=== PATIENT | female | born 1990 | race Caucasian/White ===

== ENCOUNTER → 2016-11-07 15:49 | Outpatient (RCR) | payer BC ==
[2016-10-09 13:07] VITALS: BP 123/75; PULSE 83; TEMP 97.9
[2016-10-16 13:41] VITALS: BP 119/74; BP 127/88; PULSE 84; PULSE 94; TEMP 97.6; TEMP 98.2
[2016-11-05 18:45] VITALS: TEMP 98.9
[~2016-11-07] VITALS: Ht 172.7 cm; Wt 71.7 kg
[~2016-11-07 15:49] MED LIST: FERROUS SU325 MG/TAB PO; IBU600 MG PO; PERCOCET 325 MG1 TA2 PO; PRENATAL MVI
== END | disposition home or self-care (01) ==
LOC: LDRO 10-07 18:29
DX: O30.002 Twin pregnancy, unspecified number of placenta and unspecified number of amniotic sacs, second trimester (principal); Z3A.19 19 weeks gestation of pregnancy

== ENCOUNTER 2016-11-25 06:20 | Inpatient (IN) | payer BC ==
[2016-11-25] VITALS (21 sets, daily range): BP systolic 103–148; BP diastolic 60–93; PULSE 71–108; TEMP 97.6–98.2
[~2016-11-25 06:20] MED LIST changes: -FERROUS SU325 MG/TAB PO; -IBU600 MG PO; -PERCOCET 325 MG1 TA2 PO
[2016-11-25 07:00] LABS: BASO # 0.1 (0.0-0.2); BASO % 0.4 % (0.0-2.0); EOS # 0.4 (0.0-0.7); EOS % 2.9 % (0-4.0); GRAN # 9.2 (1.4-6.5); GRAN % 68.1 % (42.2-75.2); LYMPH # 2.9 (1.2-3.4); LYMPH % 21.1 % (20.0-51.0); MEAN CELL VOLUME 87 fl (80.0-100.0); MEAN CORPUSCULAR HGB CONC 34 g/dl (33.0-37.0); MONO # 0.9 (0.1-0.6); MONO % 6.9 % (1.7-9.3); PLATELET COUNT 203 K/mm3 (130-400); RED BLOOD COUNT 4.04 M/mm3 (4.10-5.30); REDCELL DISTRIBUTION WIDTH-CV 12.9 % (11.5-14.5); WHITE BLOOD COUNT 13.5 K/mm3 (4.8-10.8)
[2016-11-25 07:02] LABS: HEMOGLOBIN 11.8 g/dl (12.5-16.0); MEAN CORPUSCULAR HEMOGLOBIN 29 pg (27.0-31.0)
[2016-11-26 07:13] LABS: HEMATOCRIT 24.8 % (37.0-47.0)
[2016-11-26 07:29] VITALS: BP 125/75; PULSE 88; TEMP 98.2
[2016-11-26] MEDS ORDERED: PERCOCET 325 MG1 TA2 PO (08:47)
[2016-11-26] MEDS ORDERED: IBU600 MG PO (08:47)
[2016-11-26] MEDS ORDERED: FERROUS SU325 MG/TAB PO (08:50)
[2016-11-26 11:10] VITALS: BP 127/62; PULSE 88; TEMP 98.2
== END 2016-11-26 14:19 | disposition home or self-care (01) | DRG 765 ==
LOC: LDRO 06:20 → OB 06:33 → LDR 06:33 → OB 09:00
PROVIDERS: Obstetrics & Gynecology
PROC: 10D00Z1 Extraction of Products of Conception, Low, Open Approach (ICD-10-PCS; principal; 2016-11-25)
DX: O60.14X1 Preterm labor third trimester with preterm delivery third trimester, fetus 1 (principal); D62 Acute posthemorrhagic anemia; O99.02 Anemia complicating childbirth; O30.033 Twin pregnancy, monochorionic/diamniotic, third trimester; O60.14X2 Preterm labor third trimester with preterm delivery third trimester, fetus 2; O76 Abnormality in fetal heart rate and rhythm complicating labor and delivery; O69.0XX2 Labor and delivery complicated by prolapse of cord, fetus 2; O60.13X0 Preterm labor second trimester with preterm delivery third trimester, not applicable or unspecified; Z3A.31 31 weeks gestation of pregnancy; Z37.2 Twins, both liveborn
CPT/HCPCS: J0330; J0690; J0702; J1885; J2210; J2270; J2405; J2704; J3010; J3475; J7120

== ENCOUNTER 2018-08-06 15:33 | Emergency (ER) | payer BC ==
[~2018-08-06] VITALS: Ht 172.7 cm; Wt 63.6 kg
[~2018-08-06 15:33] MED LIST changes: +FERROUS SU325 MG/TAB PO; +IBU600 MG PO; +PERCOCET 325 MG1 TA2 PO
[2018-08-06 15:47] VITALS: TEMP 99
[2018-08-06] MEDS ORDERED: FLAGYL500 MG PO (16:06)
[2018-08-06] MEDS ORDERED: CIPRO 500MG TA500 MG PO (16:07)
[2018-08-06] MEDS ORDERED: PROBIOTIC FORMU1 CAP PO (16:07)
[2018-08-06 16:32] LABS: COLLECTION METHOD CLEAN CATCH
[2018-08-06 16:40] LABS: MUCOUS Present /lpf; PH 6 (5-8); SQUAMOUS EPITHELIAL 0-2 /hpf; URINE APPEARANCE Clear; URINE BACTERIA Rare /hpf; URINE BILIRUBIN Negative (NEGATIVE); URINE BLOOD 1+ (NEGATIVE); URINE COLOR Yellow; URINE GLUCOSE Negative (NEGATIVE); URINE KETONE 1+ (NEGATIVE); URINE LEUKOCYTE ESTERASE Trace (NEGATIVE); URINE NITRATE Negative (NEGATIVE); URINE PROTEIN(semi-quant) Negative (NEGATIVE); URINE UROBILINOGEN Negative (NEGATIVE)
[2018-08-06 16:57] LABS: BASO # 0.1 (0.0-0.2); BASO % 0.6 % (0.0-2.0); EOS # 0.3 (0.0-0.7); EOS % 3.5 % (0-4.0); GRAN # 5.4 (1.4-6.5); GRAN % 69.1 % (42.2-75.2); HEMOGLOBIN 12.9 g/dl (12.5-16.0); LYMPH # 1.3 (1.2-3.4); LYMPH % 16.5 % (20.0-51.0); MEAN CELL VOLUME 89 fl (80.0-100.0); MEAN CORPUSCULAR HEMOGLOBIN 30 pg (27.0-31.0); MEAN CORPUSCULAR HGB CONC 33 g/dl (33.0-37.0); MEAN PLATELET VOLUME 8.8 fl (7.4-10.4); MONO # 0.8 (0.1-0.6); MONO % 9.9 % (1.7-9.3); PLATELET COUNT 327 K/mm3 (130-400); RED BLOOD COUNT 4.38 M/mm3 (4.10-5.30); REDCELL DISTRIBUTION WIDTH-CV 12.8 % (11.5-14.5)
[2018-08-06 17:08] LABS: BILIRUBIN,TOTAL 0.2 mg/dL (0.0-1.0); C-REACTIVE PROTEIN 1.2 mg/dL (0.0-0.9); CALCIUM 8.8 mg/dL (8.4-10.2); CREATININE, serum 0.68 mg/dL (0.52-1.25); TOTAL PROTEIN 7.6 gm/dL (6.4-8.2)
[2018-08-06] MEDS ORDERED: PHENERGAN 25 TA25 MG PO (18:21)
[2018-08-06 19:00] VITALS: BP 109/63; PULSE 101
[2018-08-07] MEDS ORDERED: PREDNISONE20 MG PO ×2 (13:57→13:58)
[2018-08-07] MEDS ORDERED: LIALDA 1.2 GM1.2 GM PO (14:00)
== END 2018-08-06 19:00 | disposition home or self-care (01) ==
LOC: COL.ER 15:33
PROVIDERS: Emergency Medicine
DX: K52.9 Noninfective gastroenteritis and colitis, unspecified (principal)
CPT/HCPCS: J1170; J2550; J7030; Q9967

== ENCOUNTER 2018-08-07 12:00 | Day surgery (SDC) | payer BC ==
[2018-08-07] VITALS (7 sets, daily range): BP systolic 99–118; BP diastolic 63–78; PULSE 92–105; TEMP 98.6–98.7
[~2018-08-07] VITALS: Ht 172.7 cm; Wt 63.7 kg
[~2018-08-07 12:00] MED LIST changes: +CIPRO 500MG TA500 MG PO; +FLAGYL500 MG PO; +PHENERGAN 25 TA25 MG PO; +PROBIOTIC FORMU1 CAP PO
--- NOTE | 2018-08-07 13:28 | NUR ---
Pt brought back from endo procedure. Pt drowsy, but answers all questions appropriately. Pt ambulates from cart to recliner with RN assist x 2. Monitors on and alarms set. Call light within reach. present in room. Report received from CLAUDIO Valiente. Pt denies any feelings of pain or nausea. Pt desires to wait for food and drink until more awake.
--- NOTE | 2018-08-07 13:45 | NUR ---
VSS and WNL on room air. Patient is resting comfortably in room, sleeping. Arouses easily to voice. Denies any pain, nausea, or need.
[2018-08-07] MEDS ORDERED: PREDNISONE20 MG PO ×2 (13:57→13:58)
[2018-08-07] MEDS ORDERED: LIALDA 1.2 GM1.2 GM PO (14:00)
--- NOTE | 2018-08-07 14:00 | NUR ---
Patient sitting up, awake. Requests and receives a muffin and juice - tolerates well. VSS on room air. Will continue to monitor.
--- NOTE | 2018-08-07 14:15 | NUR ---
VSS and WNL on room air. Resting comfortably in room. Denies any pain, nausea, or need at this time.
--- NOTE | 2018-08-07 14:27 | NUR ---
Dr. Soto at the bedside.
--- NOTE | 2018-08-07 14:47 | NUR ---
Discharge criteria has been met. Discharge instructions discussed, denies any questions, and verbalizes understanding. at the bedside. Patient aware of prescriptions to pick up worker at preferred pharmacy, and follow-up appointment to be scheduled for 2 weeks from now. Patient changing to clothing independently.
--- NOTE | 2018-08-07 14:50 | NUR ---
Patient escorted to exit. Discharged to home with ride in private vehicle at 1450.
== END 2018-08-07 14:50 | disposition home or self-care (01) ==
LOC: SDCO 12:00
DX: K51.011 Ulcerative (chronic) pancolitis with rectal bleeding (principal); R93.3 Abnormal findings on diagnostic imaging of other parts of digestive tract; K52.9 Noninfective gastroenteritis and colitis, unspecified
CPT/HCPCS: J2250; J3010; J7030